=== PATIENT | female | born 1955 | race Two or more races ===

== ENCOUNTER 2022-07-23 07:09 | Day surgery (SDC) | payer OTHER | END 2022-07-23 14:15 | disposition home or self-care (01) | LOC: AMB-ENDOS 07:09 | PROVIDERS: ATTEND Colon & Rectal Surgery | DX: K63.5 Polyp of colon (principal); K62.1 Rectal polyp; Z20.822 Contact with and (suspected) exposure to COVID-19 ==

== ENCOUNTER 2022-09-09 09:45 | Inpatient (IN) | payer OTHER ==
[~2022-09-09] VITALS: Ht 167.6 cm; Wt 77.1 kg
[2022-09-09] MEDS ORDERED: TOPROL XL50 M1 PO (12:56)
[2022-09-09] MEDS ORDERED: LOSART PO (12:56)
[2022-09-09] MEDS ORDERED: OMEGA 3 1,0001 EACH PO (12:57)
[2022-09-09] MEDS ORDERED: LIPOFEN150 MG PO (12:57)
[2022-09-09] MEDS ORDERED: DULOXETINE HCL40 MG PO (12:58)
[2022-09-09] MEDS ORDERED: CLONAZEPAM1 MG PO (12:58)
[2022-09-09] MEDS ORDERED: TRAZODONE HCL100 MG PO (12:59)
[2022-09-12] MEDS ORDERED: METOPROLOL SUCC50 MG (13:03)
[2022-09-12] MEDS ORDERED: LOSARTAN POTASS50 MG (13:03)
[2022-09-12] MEDS ORDERED: DULOXETINE HCL60 MG (13:03)
[2022-09-12] MEDS ORDERED: TRAZODONE HCL50 MG (13:03)
[2022-09-12] MEDS ORDERED: FENOFIBRATE160 MG (13:03)
[2022-09-12] MEDS ORDERED: SUMATRIPTAN SUC50 MG (13:03)
[2022-09-12] MEDS ORDERED: AMITRIPTYLINE H50 MG (13:03)
== END 2022-09-15 13:07 | disposition home or self-care (01) | DRG 331 ==
LOC: O/R 09-12 06:18 → SURH 09-12 09:45 → SURG 09-12 19:04 → SURH 09-14 14:24
PROVIDERS: ADMIT Colon & Rectal Surgery; ATTEND Colon & Rectal Surgery
PROC: 07BC4ZZ Excision of Pelvis Lymphatic, Percutaneous Endoscopic Approach (ICD-10-PCS; 2022-09-12)
PROC: 0DJD8ZZ Inspection of Lower Intestinal Tract, Via Natural or Artificial Opening Endoscopic (ICD-10-PCS; 2022-09-12)
PROC: 0DBV4ZZ Excision of Mesentery, Percutaneous Endoscopic Approach (ICD-10-PCS; 2022-09-12)
PROC: 0DTN4ZZ Resection of Sigmoid Colon, Percutaneous Endoscopic Approach (ICD-10-PCS; principal; 2022-09-12 12:45)
DX: D12.5 Benign neoplasm of sigmoid colon (principal); I11.9 Hypertensive heart disease without heart failure